=== PATIENT | female | born 1955 | race Caucasian/White ===

== ENCOUNTER → 2017-06-16 | Outpatient (CLI) | payer MEDICARE, OTHER ==
[~2017-06-16] MED LIST: Acidophilus La100 GM PO; B 12; BENADRYL IV; Benadryl 5050 MG/ML IV; CEPH500 PO; CYAN1000I IM; DIAZ5 PO; DIPH50 PO; DOCU100 PO; DOXY100 PO; Diflucan100 MG PO; EPIN.3I IM; ESTR.05PBW TOP; FENT50TP TOP; FLUC100 PO; FLUC150A PO; FLUC200 PO; HIZENTRA10 GM/50 M SC; HYDCOR10 PO; Imitrex100 MG PO; K-Tab10 MEQ PO; LEVAQUIN-D750 MG/150 IV; LEVO2 PO; LINE600 PO; MECL12.5 PO; METR500 PO; MUPI1NAS; MUPI1NAS TOP; MUPI2TO TOP; Metronidaz500 MG/100 IV; ONDA4ODT MM; OPIUM PO; OPIUM TINCTURE PO; PHENERGAN25 MG PR; PROM25 IV; PROM25 PO; SUMA25 PO; TPN; VANC125; VANCOCIN IV; VANCOMYCIN HCL IV; VANCOMYCIN HCL750 MG IV; VANCOMYCIN IV; VITAMIN D400 UNIT/1 PO; Vancocin 11000 MG/20 IV; Vancocin HCL1000 M1 IV; XARELTO15 MG PO; [UNRECOGNIZED DRUG - OTHER] PO
== END | disposition home or self-care (01) ==
LOC: LAB 08:29
DX: A68.9 Relapsing fever, unspecified (principal); R30.0 Dysuria
CPT/HCPCS: 87086

== ENCOUNTER → 2017-06-17 | Outpatient (CLI) | payer MEDICARE, OTHER ==
[2017-06-17 18:27] LABS: BASOPHILS ABSOLUTE AUTO 0.06 K/mm3 (0.00-0.23); BASOPHILS PERCENT AUTO 1 % (0-2); EOSINOPHILS ABSOLUTE AUTO 0.21 K/mm3 (0.00-0.68); EOSINOPHILS PERCENT AUTO 2 % (0-6); Hematocrit 41.7 % (33.0-51.0); Hemoglobin 13.9 g/dL (11.5-16.0); IMMATURE GRAN ABSOLUTE AUTO 0.03 K/mm3 (0.00-0.10); IMMATURE GRAN PERCENT AUTO 0 % (0-1); LYMPHOCYTES ABSOLUTE AUTO 3.74 K/mm3 (0.84-5.20); LYMPHOCYTES PERCENT AUTO 31 % (21-46); MONOCYTES ABSOLUTE AUTO 0.68 K/mm3 (0.16-1.47); MONOCYTES PERCENT AUTO 6 % (4-13); Mean Corpuscular HGB 29.4 pg (26.0-34.0); Mean Corpuscular HGB Conc 33.3 g/dL (31.5-36.5); Mean Corpuscular Volume 88 fL (80-100); Mean Platelet Volume 9.4 fL (9.1-12.4); NEUTROPHILS ABSOLUTE AUTO 7.39 K/mm3 (1.96-9.15); NEUTROPHILS PERCENT AUTO 61 % (41-73); Platelet Count 373 K/mm3 (150-400); RDW Coefficient Variation 14.2 % (11.7-14.2); RDW Standard Deviation 45.9 fL (35.1-46.3); Red Blood Cell Count 4.73 M/mm3 (3.80-5.20); White Blood Cell Count 12.11 K/mm3 (4.00-11.30)
[2017-06-17 20:00] LABS: Alanine Aminotransfer (ALT/SGP 16 U/L (12-78); Albumin, Blood 3.4 g/dL (3.4-5.0); Albumin/Globulin Ratio 0.9 (0.8-1.8); Alk Phos 131 U/L (50-136); Anion Gap 13 mmol/L (6-16); Aspartate Aminotrans (AST/SGOT 21 U/L (12-37); Bilirubin, Total 0.4 mg/dL (0.1-1.0); Blood Urea Nitrogen 7 mg/dL (8-24); Bun/Creatinine Ratio 9.1 (12.0-20.0); CO2, Blood 23 mmol/L (21-32); Calcium, Blood 9.1 mg/dL (8.5-10.1); Chloride, Blood 106 mmol/L (98-108); Creatinine, Blood 0.77 mg/dL (0.40-1.00); Globulin, Blood 3.7 g/dL (2.2-4.0); Glomerular Filtration Rate >60 (60-); Glucose, Blood 92 mg/dL (70-99); Potassium, Blood 4.1 mmol/L (3.5-5.5); Sodium, Blood 142 mmol/L (136-145); Total Protein, Blood 7.1 g/dL (6.4-8.2)
== END ==
LOC: LAB 15:24
PROVIDERS: Family Medicine
DX: A68.9 Relapsing fever, unspecified (principal); R51 Headache
CPT/HCPCS: 80053; 85025

== ENCOUNTER 2017-09-03 18:14 | Inpatient (IN) | payer MEDICARE, OTHER ==
[~2017-09-03] VITALS: Ht 152.4 cm; Wt 59.0 kg
[~2017-09-03 18:14] MED LIST changes: -CYAN1000I IM; -DOCU100 PO; -Diflucan100 MG PO; -FENT50TP TOP; -MUPI1NAS; -ONDA4ODT MM; -OPIUM PO; -PHENERGAN25 MG PR; -VITAMIN D400 UNIT/1 PO
[2017-09-03 19:29] LABS: BASOPHILS ABSOLUTE AUTO 0.02 K/mm3 (0.00-0.23); BASOPHILS PERCENT AUTO 0 % (0-2); EOSINOPHILS ABSOLUTE AUTO 0.01 K/mm3 (0.00-0.68); EOSINOPHILS PERCENT AUTO 0 % (0-6); Hematocrit 41.2 % (33.0-51.0); Hemoglobin 14.1 g/dL (11.5-16.0); IMMATURE GRAN ABSOLUTE AUTO 0.03 K/mm3 (0.00-0.10); IMMATURE GRAN PERCENT AUTO 0 % (0-1); LYMPHOCYTES ABSOLUTE AUTO 1.66 K/mm3 (0.84-5.20); LYMPHOCYTES PERCENT AUTO 16 % (21-46); MONOCYTES ABSOLUTE AUTO 0.73 K/mm3 (0.16-1.47); MONOCYTES PERCENT AUTO 7 % (4-13); Mean Corpuscular HGB 31.1 pg (26.0-34.0); Mean Corpuscular HGB Conc 34.2 g/dL (31.5-36.5); Mean Corpuscular Volume 91 fL (80-100); Mean Platelet Volume 9.2 fL (9.1-12.4); NEUTROPHILS ABSOLUTE AUTO 8.09 K/mm3 (1.96-9.15); NEUTROPHILS PERCENT AUTO 77 % (41-73); Platelet Count 309 K/mm3 (150-400); RDW Coefficient Variation 13.2 % (11.7-14.2); RDW Standard Deviation 44.1 fL (35.1-46.3); Red Blood Cell Count 4.54 M/mm3 (3.80-5.20); White Blood Cell Count 10.54 K/mm3 (4.00-11.30)
[2017-09-03 21:24] LABS: Alanine Aminotransfer (ALT/SGP 17 U/L (12-78); Albumin, Blood 3.6 g/dL (3.4-5.0); Albumin/Globulin Ratio 0.8 (0.8-1.8); Alk Phos 120 U/L (50-136); Anion Gap 14 mmol/L (6-16); Aspartate Aminotrans (AST/SGOT 16 U/L (12-37); Bilirubin, Total 0.6 mg/dL (0.1-1.0); Blood Urea Nitrogen 11 mg/dL (8-24); Bun/Creatinine Ratio 13.6 (12.0-20.0); CO2, Blood 24 mmol/L (21-32); Calcium, Blood 9.1 mg/dL (8.5-10.1); Chloride, Blood 98 mmol/L (98-108); Creatinine, Blood 0.81 mg/dL (0.40-1.00); Globulin, Blood 4.4 g/dL (2.2-4.0); Glomerular Filtration Rate >60 (60-); Glucose, Blood 80 mg/dL (70-99); Potassium, Blood 3.2 mmol/L (3.5-5.5); Sodium, Blood 136 mmol/L (136-145)
[2017-09-03 23:07] LABS: Source, Urine Clean Catch
[2017-09-03 23:10] LABS: Bilirubin, Urine Neg (Neg); Blood, Urine 1+ (Neg); Glucose Qualitative, Urine Neg (Neg); Ketones, Urine 3+ (Neg); Leukocyte Esterase, Urine 3+ (Neg); Nitrite, Urine Neg (Neg); Protein, Urine Neg (Neg); Urobilinogen, Urine NORM (Normal)
[2017-09-03 23:14] LABS: Appearance, Urine Hazy (Clear); Color, Urine Yellow (P-Yellow)
[2017-09-03 23:20] LABS: Amorphous Mod (0-Heavy); Bacteria Few /hpf; Red Blood Cells, Urine 0-2 /hpf (0-2); Squamous Epithelial Cells Not Seen /hpf (Few)
[2017-09-04 04:55] LABS: Hematocrit 38.4 % (33.0-51.0); Hemoglobin 12.8 g/dL (11.5-16.0); Mean Corpuscular HGB 30.3 pg (26.0-34.0); Mean Corpuscular HGB Conc 33.3 g/dL (31.5-36.5); Mean Corpuscular Volume 91 fL (80-100); Mean Platelet Volume 9.8 fL (9.1-12.4); Platelet Count 297 K/mm3 (150-400); RDW Coefficient Variation 13.5 % (11.7-14.2); RDW Standard Deviation 44.6 fL (35.1-46.3); Red Blood Cell Count 4.22 M/mm3 (3.80-5.20); White Blood Cell Count 8.35 K/mm3 (4.00-11.30)
[2017-09-04 05:17] LABS: Alanine Aminotransfer (ALT/SGP 15 U/L (12-78); Albumin, Blood 3.1 g/dL (3.4-5.0); Albumin/Globulin Ratio 0.8 (0.8-1.8); Alk Phos 101 U/L (50-136); Anion Gap 9 mmol/L (6-16); Aspartate Aminotrans (AST/SGOT 17 U/L (12-37); Bilirubin, Total 0.6 mg/dL (0.1-1.0); Blood Urea Nitrogen 10 mg/dL (8-24); Bun/Creatinine Ratio 14.1 (12.0-20.0); CO2, Blood 26 mmol/L (21-32); Calcium, Blood 8.3 mg/dL (8.5-10.1); Chloride, Blood 104 mmol/L (98-108); Creatinine, Blood 0.71 mg/dL (0.40-1.00); Globulin, Blood 3.9 g/dL (2.2-4.0); Glomerular Filtration Rate >60 (60-); Glucose, Blood 61 mg/dL (70-99); Sodium, Blood 139 mmol/L (136-145)
[2017-09-05 05:19] LABS: BASOPHILS ABSOLUTE AUTO 0.02 K/mm3 (0.00-0.23); BASOPHILS PERCENT AUTO 0 % (0-2); EOSINOPHILS ABSOLUTE AUTO 0.05 K/mm3 (0.00-0.68); EOSINOPHILS PERCENT AUTO 1 % (0-6); Hematocrit 35.3 % (33.0-51.0); Hemoglobin 11.9 g/dL (11.5-16.0); IMMATURE GRAN ABSOLUTE AUTO 0.02 K/mm3 (0.00-0.10); IMMATURE GRAN PERCENT AUTO 0 % (0-1); LYMPHOCYTES PERCENT AUTO 15 % (21-46); MONOCYTES ABSOLUTE AUTO 0.67 K/mm3 (0.16-1.47); MONOCYTES PERCENT AUTO 9 % (4-13); Mean Corpuscular HGB Conc 33.7 g/dL (31.5-36.5); Mean Corpuscular Volume 92 fL (80-100); Mean Platelet Volume 9.4 fL (9.1-12.4); NEUTROPHILS ABSOLUTE AUTO 5.48 K/mm3 (1.96-9.15); NEUTROPHILS PERCENT AUTO 75 % (41-73); Platelet Count 253 K/mm3 (150-400); RDW Coefficient Variation 13.2 % (11.7-14.2); RDW Standard Deviation 45.2 fL (35.1-46.3); Red Blood Cell Count 3.84 M/mm3 (3.80-5.20); White Blood Cell Count 7.34 K/mm3 (4.00-11.30)
[2017-09-05] MEDS ORDERED: VITAMIN D400 UNIT/1 PO (05:36)
[2017-09-05] MEDS ORDERED: CYAN1000I IM (05:38)
[2017-09-05 05:43] LABS: Anion Gap 11 mmol/L (6-16); Blood Urea Nitrogen 7 mg/dL (8-24); Bun/Creatinine Ratio 9.6 (12.0-20.0); CO2, Blood 22 mmol/L (21-32); Calcium, Blood 7.9 mg/dL (8.5-10.1); Chloride, Blood 107 mmol/L (98-108); Creatinine, Blood 0.73 mg/dL (0.40-1.00); Glomerular Filtration Rate >60 (60-); Glucose, Blood 75 mg/dL (70-99); Potassium, Blood 3.2 mmol/L (3.5-5.5); Sodium, Blood 140 mmol/L (136-145)
[2017-09-07 05:40] LABS: Anion Gap 8 mmol/L (6-16); Blood Urea Nitrogen 9 mg/dL (8-24); Bun/Creatinine Ratio 11.8 (12.0-20.0); CO2, Blood 25 mmol/L (21-32); Calcium, Blood 8.3 mg/dL (8.5-10.1); Chloride, Blood 109 mmol/L (98-108); Creatinine, Blood 0.76 mg/dL (0.40-1.00); Glomerular Filtration Rate >60 (60-); Glucose, Blood 90 mg/dL (70-99); Potassium, Blood 3.1 mmol/L (3.5-5.5); Sodium, Blood 142 mmol/L (136-145)
[2017-09-07] MEDS ORDERED: DOCU100 PO (11:13)
[2017-09-07] MEDS ORDERED: FENT50TP TOP (11:15)
[2017-09-07] MEDS ORDERED: HIZENTRA10 GM/50 M SC (11:19)
[2017-09-07] MEDS ORDERED: ONDA4ODT MM (11:20)
== END 2017-09-07 12:47 | disposition home or self-care (01) | DRG 389 ==
LOC: ER 18:14 → MEDS 21:55 → ENPENDDIS 09-07 10:00 → MEDS 09-07 12:47
PROVIDERS: Emergency Medicine; Internal Medicine
DX: K56.600 Partial intestinal obstruction, unspecified as to cause (principal); K91.2 Postsurgical malabsorption, not elsewhere classified; E46 Unspecified protein-calorie malnutrition; D84.9 Immunodeficiency, unspecified; N39.0 Urinary tract infection, site not specified; B96.89 Other specified bacterial agents as the cause of diseases classified elsewhere; R19.7 Diarrhea, unspecified; E86.0 Dehydration; E87.6 Hypokalemia; Z68.25 Body mass index [BMI] 25.0-25.9, adult; M81.0 Age-related osteoporosis without current pathological fracture; E55.9 Vitamin D deficiency, unspecified; G89.4 Chronic pain syndrome; F41.9 Anxiety disorder, unspecified; F17.210 Nicotine dependence, cigarettes, uncomplicated; Z90.49 Acquired absence of other specified parts of digestive tract; Z88.8 Allergy status to other drugs, medicaments and biological substances; Z79.899 Other long term (current) drug therapy
CPT/HCPCS: 36415; 74022; 74176; 80048; 80053; 81001; 83690; 85025; 85027; 87086; 87493; 96361; 96374; 96375; 96376; 99285; J1650; J2550; J3010; J3370; J3480; J7030

== ENCOUNTER 2017-12-24 17:25 | Inpatient (IN) | payer MEDICARE, OTHER ==
[~2017-12-24] VITALS: Ht 160 cm; Wt 61.0 kg
[~2017-12-24 17:25] MED LIST changes: +CYAN1000I IM; +DOCU100 PO; +FENT50TP TOP; +ONDA4ODT MM; +PHENERGAN25 MG PR; +VITAMIN D400 UNIT/1 PO
[2017-12-24] MEDS ORDERED: LINE600 PO (20:02)
[2017-12-24] MEDS ORDERED: OPIUM PO (20:04)
[2017-12-24 21:14] LABS: BASOPHILS ABSOLUTE AUTO 0.04 K/mm3 (0.00-0.23); BASOPHILS PERCENT AUTO 0 % (0-2); EOSINOPHILS ABSOLUTE AUTO 0.06 K/mm3 (0.00-0.68); EOSINOPHILS PERCENT AUTO 1 % (0-6); Hematocrit 41.7 % (33.0-51.0); Hemoglobin 14.2 g/dL (11.5-16.0); IMMATURE GRAN ABSOLUTE AUTO 0.04 K/mm3 (0.00-0.10); IMMATURE GRAN PERCENT AUTO 0 % (0-1); LYMPHOCYTES ABSOLUTE AUTO 2.52 K/mm3 (0.84-5.20); LYMPHOCYTES PERCENT AUTO 22 % (21-46); MONOCYTES ABSOLUTE AUTO 0.55 K/mm3 (0.16-1.47); MONOCYTES PERCENT AUTO 5 % (4-13); Mean Corpuscular HGB 30.7 pg (26.0-34.0); Mean Corpuscular HGB Conc 34.1 g/dL (31.5-36.5); Mean Corpuscular Volume 90 fL (80-100); Mean Platelet Volume 9.8 fL (9.1-12.4); NEUTROPHILS ABSOLUTE AUTO 8.09 K/mm3 (1.96-9.15); NEUTROPHILS PERCENT AUTO 72 % (41-73); Platelet Count 262 K/mm3 (150-400); RDW Coefficient Variation 13.2 % (11.7-14.2); RDW Standard Deviation 43.4 fL (35.1-46.3); Red Blood Cell Count 4.63 M/mm3 (3.80-5.20)
[2017-12-24 21:35] LABS: Alanine Aminotransfer (ALT/SGP 21 U/L (12-78); Albumin, Blood 3.4 g/dL (3.4-5.0); Albumin/Globulin Ratio 0.8 (0.8-1.8); Alk Phos 93 U/L (50-136); Anion Gap 11 mmol/L (6-16); Aspartate Aminotrans (AST/SGOT 20 U/L (12-37); Bilirubin, Total 0.6 mg/dL (0.1-1.0); Blood Urea Nitrogen 6 mg/dL (8-24); Bun/Creatinine Ratio 8.7 (12.0-20.0); CO2, Blood 26 mmol/L (21-32); Calcium, Blood 8.7 mg/dL (8.5-10.1); Chloride, Blood 106 mmol/L (98-108); Creatinine, Blood 0.69 mg/dL (0.40-1.00); Globulin, Blood 4.5 g/dL (2.2-4.0); Glomerular Filtration Rate >60 (60-); Glucose, Blood 79 mg/dL (70-99); Potassium, Blood 3.3 mmol/L (3.5-5.5); Sodium, Blood 143 mmol/L (136-145); Total Protein, Blood 7.9 g/dL (6.4-8.2)
[2017-12-26 05:34] LABS: BASOPHILS ABSOLUTE AUTO 0.06 K/mm3 (0.00-0.23); BASOPHILS PERCENT AUTO 1 % (0-2); EOSINOPHILS ABSOLUTE AUTO 0.38 K/mm3 (0.00-0.68); EOSINOPHILS PERCENT AUTO 4 % (0-6); Hematocrit 37.9 % (33.0-51.0); Hemoglobin 12.4 g/dL (11.5-16.0); IMMATURE GRAN ABSOLUTE AUTO 0.02 K/mm3 (0.00-0.10); IMMATURE GRAN PERCENT AUTO 0 % (0-1); LYMPHOCYTES ABSOLUTE AUTO 2.65 K/mm3 (0.84-5.20); LYMPHOCYTES PERCENT AUTO 29 % (21-46); MONOCYTES PERCENT AUTO 7 % (4-13); Mean Corpuscular HGB 30.3 pg (26.0-34.0); Mean Corpuscular HGB Conc 32.7 g/dL (31.5-36.5); Mean Platelet Volume 9.8 fL (9.1-12.4); NEUTROPHILS ABSOLUTE AUTO 5.43 K/mm3 (1.96-9.15); NEUTROPHILS PERCENT AUTO 59 % (41-73); Platelet Count 208 K/mm3 (150-400); RDW Coefficient Variation 12.8 % (11.7-14.2); RDW Standard Deviation 43.4 fL (35.1-46.3); Red Blood Cell Count 4.09 M/mm3 (3.80-5.20); White Blood Cell Count 9.14 K/mm3 (4.00-11.30)
[2017-12-26 05:35] LABS: Mean Corpuscular Volume 93 fL (80-100)
[2017-12-26 06:03] LABS: Alanine Aminotransfer (ALT/SGP 20 U/L (12-78); Albumin/Globulin Ratio 0.8 (0.8-1.8); Alk Phos 78 U/L (50-136); Anion Gap 12 mmol/L (6-16); Aspartate Aminotrans (AST/SGOT 24 U/L (12-37); Bilirubin, Total 0.6 mg/dL (0.1-1.0); Blood Urea Nitrogen 6 mg/dL (8-24); CO2, Blood 18 mmol/L (21-32); Calcium, Blood 7.3 mg/dL (8.5-10.1); Chloride, Blood 112 mmol/L (98-108); Globulin, Blood 3.6 g/dL (2.2-4.0); Glomerular Filtration Rate >60 (60-); Potassium, Blood 3.6 mmol/L (3.5-5.5); Sodium, Blood 142 mmol/L (136-145); Total Protein, Blood 6.6 g/dL (6.4-8.2)
[2017-12-26 06:05] LABS: Glucose, Blood 43 mg/dL (70-99)
== END 2017-12-26 13:53 | disposition home or self-care (01) | DRG 389 ==
LOC: ER 17:25 → PCU 17:26 → MEDS 12-25 01:13 → EDPENDDIS 12-26 07:11 → ENPENDDIS 12-26 07:11 → MEDS 12-26 13:53
PROVIDERS: Emergency Medicine; Family Medicine
DX: K56.609 Unspecified intestinal obstruction, unspecified as to partial versus complete obstruction (principal); D80.3 Selective deficiency of immunoglobulin G [IgG] subclasses; D80.2 Selective deficiency of immunoglobulin A [IgA]; K91.2 Postsurgical malabsorption, not elsewhere classified; E87.6 Hypokalemia; G43.909 Migraine, unspecified, not intractable, without status migrainosus; M81.0 Age-related osteoporosis without current pathological fracture; G89.4 Chronic pain syndrome; F17.200 Nicotine dependence, unspecified, uncomplicated; Z86.74 Personal history of sudden cardiac arrest; Z88.6 Allergy status to analgesic agent; Z88.1 Allergy status to other antibiotic agents; Z88.5 Allergy status to narcotic agent; Z88.0 Allergy status to penicillin; Z88.2 Allergy status to sulfonamides; Z88.8 Allergy status to other drugs, medicaments and biological substances; Z91.048 Other nonmedicinal substance allergy status; Z79.899 Other long term (current) drug therapy
CPT/HCPCS: 36415; 74018; 74177; 80053; 82947; 83690; 85025; 93005; 93010; 96372; 96375; 96376; G0378; J1650; J2405; J2550; J3010; J3480; J7030; Q9967

== ENCOUNTER → 2018-05-19 | Outpatient (CLI) | payer MEDICARE, OTHER ==
[~2018-05-19] MED LIST changes: +Diflucan100 MG PO; +MUPI1NAS; +OPIUM PO
[2018-05-26 13:40] LABS: Bacteria Not Seen /hpf; Red Blood Cells, Urine 0-2 /hpf (0-2); Squamous Epithelial Cells Not Seen /hpf (Few); White Blood Cells, Urine 0-2 /hpf (0-5)
== END | disposition home or self-care (01) ==
LOC: LAB 19:14 → LAB SHORT 19:14
PROVIDERS: Family Medicine
DX: R30.0 Dysuria (principal)
CPT/HCPCS: 81015; 87086

== ENCOUNTER → 2018-10-24 | Outpatient (CLI) | payer MEDICARE, OTHER | LOC: LAB EV 16:25 → LAB SHORT 16:25 | DX: R10.9 Unspecified abdominal pain (principal) | CPT/HCPCS: 87086 ==

== ENCOUNTER 2019-02-02 14:07 | Emergency (ER) | payer MEDICARE, OTHER ==
[~2019-02-02] VITALS: Ht 152.4 cm; Wt 49.9 kg
[2019-02-02 18:13] LABS: BASOPHILS ABSOLUTE AUTO 0.04 K/mm3 (0.00-0.23); BASOPHILS PERCENT AUTO 0 % (0-2); EOSINOPHILS PERCENT AUTO 1 % (0-6); Hematocrit 41.3 % (33.0-51.0); Hemoglobin 13.7 g/dL (11.5-16.0); IMMATURE GRAN ABSOLUTE AUTO 0.02 K/mm3 (0.00-0.10); IMMATURE GRAN PERCENT AUTO 0 % (0-1); LYMPHOCYTES ABSOLUTE AUTO 2.45 K/mm3 (0.84-5.20); LYMPHOCYTES PERCENT AUTO 25 % (21-46); MONOCYTES ABSOLUTE AUTO 0.56 K/mm3 (0.16-1.47); MONOCYTES PERCENT AUTO 6 % (4-13); Mean Corpuscular HGB 30.6 pg (26.0-34.0); Mean Corpuscular HGB Conc 33.2 g/dL (31.5-36.5); Mean Corpuscular Volume 92 fL (80-100); Mean Platelet Volume 9.7 fL (9.1-12.4); NEUTROPHILS ABSOLUTE AUTO 6.76 K/mm3 (1.96-9.15); NEUTROPHILS PERCENT AUTO 68 % (41-73); Platelet Count 275 K/mm3 (150-400); RDW Coefficient Variation 13.2 % (11.7-14.2); RDW Standard Deviation 45.1 fL (35.1-46.3); Red Blood Cell Count 4.47 M/mm3 (3.80-5.20); White Blood Cell Count 9.93 K/mm3 (4.00-11.30)
[2019-02-02 18:36] LABS: Alanine Aminotransfer (ALT/SGP 18 U/L (12-78); Albumin, Blood 3.1 g/dL (3.4-5.0); Albumin/Globulin Ratio 0.8 (0.8-1.8); Alk Phos 98 U/L (50-136); Anion Gap 5 mmol/L (6-16); Aspartate Aminotrans (AST/SGOT 24 U/L (12-37); Bilirubin, Total 0.4 mg/dL (0.1-1.0); Blood Urea Nitrogen 8 mg/dL (8-24); Bun/Creatinine Ratio 12.2 (12.0-20.0); CO2, Blood 24 mmol/L (21-32); Calcium, Blood 8.8 mg/dL (8.5-10.1); Chloride, Blood 109 mmol/L (98-108); Creatinine, Blood 0.66 mg/dL (0.40-1.00); Globulin, Blood 3.8 g/dL (2.2-4.0); Glomerular Filtration Rate >60 (60-); Glucose, Blood 88 mg/dL (70-99); Potassium, Blood 3.7 mmol/L (3.5-5.5); Sodium, Blood 138 mmol/L (136-145); Total Protein, Blood 6.9 g/dL (6.4-8.2)
== END 2019-02-02 19:47 | disposition home or self-care (01) ==
LOC: ER 14:07
PROVIDERS: Emergency Medicine
DX: H92.01 Otalgia, right ear (principal); Z88.8 Allergy status to other drugs, medicaments and biological substances; Z88.6 Allergy status to analgesic agent; Z88.2 Allergy status to sulfonamides; Z88.5 Allergy status to narcotic agent; Z88.1 Allergy status to other antibiotic agents; Z79.899 Other long term (current) drug therapy; Z79.891 Long term (current) use of opiate analgesic; F17.210 Nicotine dependence, cigarettes, uncomplicated
CPT/HCPCS: 36415; 70450; 80053; 85025; 99284-25

== ENCOUNTER → 2019-04-13 | Outpatient (CLI) | payer MEDICARE, OTHER ==
[2019-04-13 18:33] LABS: BASOPHILS ABSOLUTE AUTO 0.08 K/mm3 (0.00-0.23); BASOPHILS PERCENT AUTO 1 % (0-2); EOSINOPHILS ABSOLUTE AUTO 0.14 K/mm3 (0.00-0.68); EOSINOPHILS PERCENT AUTO 1 % (0-6); Hemoglobin 13.9 g/dL (11.5-16.0); IMMATURE GRAN ABSOLUTE AUTO 0.07 K/mm3 (0.00-0.10); IMMATURE GRAN PERCENT AUTO 0 % (0-1); LYMPHOCYTES ABSOLUTE AUTO 3.76 K/mm3 (0.84-5.20); LYMPHOCYTES PERCENT AUTO 22 % (21-46); MONOCYTES PERCENT AUTO 8 % (4-13); Mean Corpuscular HGB 30.1 pg (26.0-34.0); Mean Corpuscular HGB Conc 33.1 g/dL (31.5-36.5); Mean Corpuscular Volume 91 fL (80-100); Mean Platelet Volume 9.7 fL (9.1-12.4); NEUTROPHILS ABSOLUTE AUTO 11.72 K/mm3 (1.96-9.15); NEUTROPHILS PERCENT AUTO 69 % (41-73); Platelet Count 407 K/mm3 (150-400); Red Blood Cell Count 4.62 M/mm3 (3.80-5.20); White Blood Cell Count 17.07 K/mm3 (4.00-11.30)
[2019-04-13 18:38] LABS: C-REACTIVE PROTEIN, EXT RANGE 0.447 mg/dL (0.000-0.300)
[2019-04-13 18:52] LABS: Alanine Aminotransfer (ALT/SGP 25 U/L (12-78); Albumin, Blood 3.9 g/dL (3.4-5.0); Albumin/Globulin Ratio 0.9 (0.8-1.8); Alk Phos 107 U/L (50-136); Anion Gap 11 mmol/L (6-16); Aspartate Aminotrans (AST/SGOT 32 U/L (12-37); Bilirubin, Total 0.6 mg/dL (0.1-1.0); Blood Urea Nitrogen 8 mg/dL (8-24); Bun/Creatinine Ratio 9.5 (12.0-20.0); CO2, Blood 19 mmol/L (21-32); Calcium, Blood 9.2 mg/dL (8.5-10.1); Chloride, Blood 106 mmol/L (98-108); Creatinine, Blood 0.84 mg/dL (0.40-1.00); Globulin, Blood 4.5 g/dL (2.2-4.0); Glomerular Filtration Rate >60 (60-); Glucose, Blood 130 mg/dL (70-99); Potassium, Blood 3.9 mmol/L (3.5-5.5); Sodium, Blood 136 mmol/L (136-145); Total Protein, Blood 8.4 g/dL (6.4-8.2)
[2019-04-14 20:42] LABS: Adenovirus F 40/41 Not Detected (NOT DETECT); Astrovirus Not Detected (NOT DETECT); Campylobacter Sp Not Detected (NOT DETECT); Cryptosporidium Not Detected (NOT DETECT); Cyclospora Cayetanensis Not Detected (NOT DETECT); E. Coli O157 Not Detected (NOT DETECT); Entamoeba Histolytica Not Detected (NOT DETECT); Enteroaggregative E. coli-EAEC Not Detected (NOT DETECT); Enteropathogenic E. coli-EPEC Not Detected (NOT DETECT); Enterotoxigenic E. coli-ETEC Not Detected (NOT DETECT); Giardia Lamblia Not Detected (NOT DETECT); Norovirus GI/GII Not Detected (NOT DETECT); Plesiomonas Shigelloides Not Detected (NOT DETECT); Rotavirus A Not Detected (NOT DETECT); Salmonella Sp Not Detected (NOT DETECT); Sapovirus Not Detected (NOT DETECT); Shiga Toxin-prod E. coli-STEC Not Detected (NOT DETECT); Shigella/Enteroin E. coli-EIEC Not Detected (NOT DETECT); Vibrio Cholerae Not Detected (NOT DETECT); Vibrio Sp Not Detected (NOT DETECT); Yersinia Enterocolitica Not Detected (NOT DETECT)
== END | disposition home or self-care (01) ==
LOC: LAB 16:33 → LAB SHORT 16:33
PROVIDERS: Nurse Practitioner Family
DX: R19.7 Diarrhea, unspecified (principal); R50.9 Fever, unspecified
CPT/HCPCS: 0097U; 80053; 84443; 85025; 85651; 86140; 87070; 87205

== ENCOUNTER 2019-04-16 12:54 | Emergency (ER) | payer MEDICARE, OTHER ==
[~2019-04-16] VITALS: Ht 152.4 cm; Wt 49.9 kg
[2019-04-16 15:01] LABS: BASOPHILS ABSOLUTE AUTO 0.03 K/mm3 (0.00-0.23); BASOPHILS PERCENT AUTO 0 % (0-2); EOSINOPHILS ABSOLUTE AUTO 0.02 K/mm3 (0.00-0.68); EOSINOPHILS PERCENT AUTO 0 % (0-6); Hematocrit 40.2 % (33.0-51.0); Hemoglobin 13.2 g/dL (11.5-16.0); IMMATURE GRAN ABSOLUTE AUTO 0.05 K/mm3 (0.00-0.10); IMMATURE GRAN PERCENT AUTO 0 % (0-1); LYMPHOCYTES ABSOLUTE AUTO 1.91 K/mm3 (0.84-5.20); LYMPHOCYTES PERCENT AUTO 14 % (21-46); MONOCYTES PERCENT AUTO 6 % (4-13); Mean Corpuscular HGB 30.3 pg (26.0-34.0); Mean Corpuscular HGB Conc 32.8 g/dL (31.5-36.5); Mean Corpuscular Volume 92 fL (80-100); Mean Platelet Volume 9.2 fL (9.1-12.4); NEUTROPHILS ABSOLUTE AUTO 11.13 K/mm3 (1.96-9.15); NEUTROPHILS PERCENT AUTO 80 % (41-73); Platelet Count 390 K/mm3 (150-400); RDW Coefficient Variation 13.9 % (11.7-14.2); RDW Standard Deviation 47.8 fL (35.1-46.3); Red Blood Cell Count 4.36 M/mm3 (3.80-5.20); White Blood Cell Count 13.94 K/mm3 (4.00-11.30)
[2019-04-16 15:23] LABS: Alanine Aminotransfer (ALT/SGP 24 U/L (12-78); Albumin, Blood 3.9 g/dL (3.4-5.0); Albumin/Globulin Ratio 0.9 (0.8-1.8); Alk Phos 85 U/L (50-136); Anion Gap 18 mmol/L (6-16); Aspartate Aminotrans (AST/SGOT 47 U/L (12-37); Bilirubin, Total 1.4 mg/dL (0.1-1.0); Blood Urea Nitrogen 14 mg/dL (8-24); CO2, Blood 19 mmol/L (21-32); Calcium, Blood 9.1 mg/dL (8.5-10.1); Chloride, Blood 102 mmol/L (98-108); Creatinine, Blood 0.78 mg/dL (0.40-1.00); Globulin, Blood 4.3 g/dL (2.2-4.0); Glomerular Filtration Rate >60 (60-); Glucose, Blood 59 mg/dL (70-99); Potassium, Blood 3.8 mmol/L (3.5-5.5); Sodium, Blood 139 mmol/L (136-145); Total Protein, Blood 8.2 g/dL (6.4-8.2)
[2019-04-16] MEDS ORDERED: PROM25 PO (15:48)
[2019-04-16] MEDS ORDERED: Diflucan100 MG PO (15:48)
== END 2019-04-16 16:11 | disposition home or self-care (01) ==
LOC: ER 12:54
PROVIDERS: Emergency Medicine
DX: R19.7 Diarrhea, unspecified (principal); R11.2 Nausea with vomiting, unspecified; F11.23 Opioid dependence with withdrawal; G89.4 Chronic pain syndrome; M81.0 Age-related osteoporosis without current pathological fracture; E55.9 Vitamin D deficiency, unspecified; F17.210 Nicotine dependence, cigarettes, uncomplicated
CPT/HCPCS: 36415; 80053; 85025; 96361; 96374; 96375; 99283-25; J1170; J2550; J7030

== ENCOUNTER → 2019-04-22 | Outpatient (CLI) | payer MEDICARE, OTHER | END | disposition home or self-care (01) | LOC: LAB SHORT 16:28 → LAB 16:28 → LAB FUT 04-14 08:35 | DX: J02.9 Acute pharyngitis, unspecified (principal); R50.9 Fever, unspecified | CPT/HCPCS: 87070; 87205 ==

== ENCOUNTER 2019-08-09 20:30 | Emergency (ER) | payer MEDICARE, OTHER ==
[~2019-08-09] VITALS: Ht 152.4 cm; Wt 47.6 kg
== END 2019-08-10 02:19 | disposition home or self-care (01) ==
LOC: ER 20:30
DX: B37.0 Candidal stomatitis (principal); R13.10 Dysphagia, unspecified; F17.210 Nicotine dependence, cigarettes, uncomplicated; Z88.1 Allergy status to other antibiotic agents; Z88.8 Allergy status to other drugs, medicaments and biological substances; Z88.6 Allergy status to analgesic agent; Z91.048 Other nonmedicinal substance allergy status; Z88.5 Allergy status to narcotic agent; Z79.899 Other long term (current) drug therapy
CPT/HCPCS: 99283

== ENCOUNTER 2019-08-23 17:57 | Inpatient (IN) | payer MEDICARE, OTHER ==
[~2019-08-23] VITALS: Ht 152.4 cm; Wt 44.2 kg
[~2019-08-23 17:57] MED LIST changes: -VITAMIN D400 UNIT/1 PO; +Vitamin D2000 UNIT PO
[2019-08-23 18:55] LABS: BASOPHILS ABSOLUTE AUTO 0.02 K/mm3 (0.00-0.23); BASOPHILS PERCENT AUTO 0 % (0-2); EOSINOPHILS ABSOLUTE AUTO 0.01 K/mm3 (0.00-0.68); EOSINOPHILS PERCENT AUTO 0 % (0-6); Hematocrit 40.8 % (33.0-51.0); Hemoglobin 13.8 g/dL (11.5-16.0); IMMATURE GRAN ABSOLUTE AUTO 0.05 K/mm3 (0.00-0.10); IMMATURE GRAN PERCENT AUTO 0 % (0-1); LYMPHOCYTES ABSOLUTE AUTO 0.93 K/mm3 (0.84-5.20); LYMPHOCYTES PERCENT AUTO 6 % (21-46); MONOCYTES ABSOLUTE AUTO 0.97 K/mm3 (0.16-1.47); MONOCYTES PERCENT AUTO 7 % (4-13); Mean Corpuscular HGB 29.2 pg (26.0-34.0); Mean Corpuscular HGB Conc 33.8 g/dL (31.5-36.5); Mean Corpuscular Volume 86 fL (80-100); Mean Platelet Volume 11.2 fL (9.1-12.4); NEUTROPHILS ABSOLUTE AUTO 12.59 K/mm3 (1.96-9.15); NEUTROPHILS PERCENT AUTO 86 % (41-73); Platelet Count 230 K/mm3 (150-400); RDW Coefficient Variation 13.8 % (11.7-14.2); RDW Standard Deviation 43.4 fL (35.1-46.3); Red Blood Cell Count 4.72 M/mm3 (3.80-5.20); White Blood Cell Count 14.57 K/mm3 (4.00-11.30)
[2019-08-23 19:32] LABS: Alanine Aminotransfer (ALT/SGP 20 U/L (12-78); Albumin, Blood 3.3 g/dL (3.4-5.0); Albumin/Globulin Ratio 0.8 (0.8-1.8); Alk Phos 77 U/L (50-136); Anion Gap 17 mmol/L (6-16); Aspartate Aminotrans (AST/SGOT 23 U/L (12-37); Bilirubin, Total 0.8 mg/dL (0.1-1.0); Blood Urea Nitrogen 8 mg/dL (8-24); Bun/Creatinine Ratio 14.1 (12.0-20.0); CO2, Blood 21 mmol/L (21-32); Calcium, Blood 9.1 mg/dL (8.5-10.1); Chloride, Blood 97 mmol/L (98-108); Creatinine, Blood 0.57 mg/dL (0.40-1.00); Globulin, Blood 4.2 g/dL (2.2-4.0); Glomerular Filtration Rate >60 (60-); Glucose, Blood 106 mg/dL (70-99); Potassium, Blood 2.6 mmol/L (3.5-5.5); Sodium, Blood 135 mmol/L (136-145); Total Protein, Blood 7.5 g/dL (6.4-8.2)
[2019-08-23] MEDS ORDERED: B-121000 MC3 PO (20:39)
[2019-08-23] MEDS ORDERED: DIPHENHYDR50 MG/1 M1 IM (20:42)
[2019-08-23 21:08] LABS: Source, Urine Clean Catch
[2019-08-23 21:10] LABS: Appearance, Urine Hazy (Clear); Blood, Urine 2+ (Neg); Color, Urine Amber (P-Yellow); Glucose Qualitative, Urine Neg (Neg); Ketones, Urine 4+ (Neg); Leukocyte Esterase, Urine 3+ (Neg); Nitrite, Urine Neg (Neg); Protein, Urine 2+ (Neg); Urobilinogen, Urine 1+ (Normal)
[2019-08-23 21:12] LABS: Bilirubin, Urine 1+ (Neg)
[2019-08-23 21:17] LABS: Amorphous Mod (0-Heavy); Bacteria Many /hpf; Red Blood Cells, Urine 0-2 /hpf (0-2); Squamous Epithelial Cells Rare /hpf (Few); White Blood Cells, Urine 25-50 /hpf (0-5)
[2019-08-23 21:18] LABS: Hyaline Casts 0-2 /lpf (0-2)
[2019-08-23] MEDS ORDERED: NYST237S PO (21:21)
--- NOTE | 2019-08-24 00:58 | NUR ---
patient oral home medication, opium tincture 10mg per ml, measured and verified with Junito STONE. Total xk=[id number]. Will take medication to pharmacy for verification and labeling.
[2019-08-24 04:26] LABS: BASOPHILS ABSOLUTE AUTO 0.03 K/mm3 (0.00-0.23); BASOPHILS PERCENT AUTO 0 % (0-2); EOSINOPHILS ABSOLUTE AUTO 0.02 K/mm3 (0.00-0.68); EOSINOPHILS PERCENT AUTO 0 % (0-6); Hematocrit 35.7 % (33.0-51.0); Hemoglobin 11.9 g/dL (11.5-16.0); IMMATURE GRAN ABSOLUTE AUTO 0.06 K/mm3 (0.00-0.10); IMMATURE GRAN PERCENT AUTO 1 % (0-1); LYMPHOCYTES ABSOLUTE AUTO 1.86 K/mm3 (0.84-5.20); LYMPHOCYTES PERCENT AUTO 17 % (21-46); MONOCYTES ABSOLUTE AUTO 1.21 K/mm3 (0.16-1.47); MONOCYTES PERCENT AUTO 11 % (4-13); Mean Corpuscular HGB 29.3 pg (26.0-34.0); Mean Corpuscular HGB Conc 33.3 g/dL (31.5-36.5); Mean Corpuscular Volume 88 fL (80-100); Mean Platelet Volume 11.8 fL (9.1-12.4); NEUTROPHILS ABSOLUTE AUTO 7.73 K/mm3 (1.96-9.15); NEUTROPHILS PERCENT AUTO 71 % (41-73); Platelet Count 195 K/mm3 (150-400); RDW Coefficient Variation 14.1 % (11.7-14.2); RDW Standard Deviation 45.7 fL (35.1-46.3); Red Blood Cell Count 4.06 M/mm3 (3.80-5.20); White Blood Cell Count 10.91 K/mm3 (4.00-11.30)
[2019-08-24 04:45] LABS: Anion Gap 15 mmol/L (6-16); Blood Urea Nitrogen 8 mg/dL (8-24); Bun/Creatinine Ratio 15.4 (12.0-20.0); CO2, Blood 20 mmol/L (21-32); Calcium, Blood 7.8 mg/dL (8.5-10.1); Chloride, Blood 106 mmol/L (98-108); Creatinine, Blood 0.52 mg/dL (0.40-1.00); Glomerular Filtration Rate >60 (60-); Glucose, Blood 95 mg/dL (70-99); Potassium, Blood 3.4 mmol/L (3.5-5.5); Sodium, Blood 141 mmol/L (136-145)
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
--- NOTE | 2019-08-24 12:09 | NUR ---
Spiritual care visit conducted. Patient is lying in bed and alert. Patient is talking to herself when I enter patient's room. Patient talks about many things and drifts from one topic to the next randomly and without a pause. I was able to gather information about her upcoming hip/leg surgery, about her family unit complications and about her pia (patient attends [facility]). Patient seems to not be very kind to to staff as they try to assist patient and is demanding of me as well. I listen empathically, reinforce helpful attitudes and provide prayer. I will continue to remain available to patient and family.
--- NOTE | 2019-08-24 13:54 | NUR ---
TRANSFER ARRIVAL TO UNIT FROM [facility]. PT ALERT AND ORIENTED. PT DOES HAVE FLIGHT OF IDEAS AND CAN BE DEMANDING AT TIMES. ORIENTED TO ROOM AND TREATMENT PLAN. PT REMAINING NPO. CARDIOLOGY CONSULT CALLED IN BY DR. VARGHESE. PT REPORTS 10/10 PAIN. PT DID RECEIVE DILAUDID BEFORE ARRIVAL TO UNIT. R HIP IS EXTERNALLY ROTATED. PEDAL PULSES FAINT. PT DENIES N/T AND ABLE TO WIGGLE TOES. CAP REFILL WNL. HEEL ELEVATED ON PILLOWS. KIRAN PATENT WITH YELLOW URINE. PT REFUSES TO BE REPOSITIONED AT THIS TIME. IVF INFUSING PER ORDERS. PERSONAL COFFEE MUG PLACED IN BEDSIDE DRAWER PER REQUEST BY PT. CALL LIGHT WITHIN REACH.
--- NOTE | 2019-08-24 14:05 | NUR ---
PT CHANGED STATUS TO SURGICAL STATUS WITH NO TELE. DR VARGHESE WAS IN TO SEE PT WOULD LIKE CARDIO CONSULT PRE SURGERY FOR EVAL D/T ABNORMAL EKG. TROP WAS DRAWN AND WAS WNL, DR VARGHESE MADE AWARE OF PROVIDER TO PROVIDER CONSULT POLICY FOR CARDIOLOGISTS. PT WAS THEN TRANSFERRED TO SURGICAL FLOOR ROOM 220 REPORT GIVEN TO AIDEE STONE. PLAN TO RE-EVAL PT TOMORROW FOR SURGERY AND TO KEEP PT NPO. PT HAS BEEN MEDICATED WITH PAIN MEDS FOR PAIN AND OPIUM TINCTURE FOR SHORT GUT SYNDROME. WILL MONITOR
--- NOTE | 2019-08-24 16:47 | NUR ---
SHIFT SUMMARY NO ACUTE CHANGES SINCE ARRIVAL TO UNIT. PT STILL DEMANDING AT TIMES AND HAS FLIGHT OF IDEAS. BUT SO FAR COOPERATIVE WITH CARE. CARDIOLOGY DR. AGUILAR CONSULTED ON PT AND CLEARED PT FOR SURGERY. DR. VARGHESE NOTIFIED AND PT ADDED ON TO OR SCHEDULE FOR TOMORROW. NPO AT MIDNIGHT. IVP DILAUDID FOR PAIN MANAGEMENT. KIRAN PATENT WITH DARK YELLOW URINE. IVF INFUSING PER ORDERS. CALL LIGHT WITHIN REACH.
--- NOTE | 2019-08-24 21:25 | NUR ---
pATIENT EXTREMELY ANXIOUS. DEMONSTRATING FLIGHT OF IDEAS, PARANOIA AND INABILITY TO FOLLOW ANY COMMANDS. OFFERED TO CHANGE ENVIRONMENT TO MAKE MORE RELAXING AND CONDUSIVE FOR SLEEP, AND PATIENTS RESPONSE WAS "YOU THINK I'M CRAZY? WELL I WON'T TAKE ANY ANTIPSYCHOTICS. JUST GIVE ME COFFEE. WILL TRY FINDING OTHER METHODS TO CALM PATIENT DOWN.
--- NOTE | 2019-08-25 04:31 | NUR ---
PALM AND BACK FORGER SUMMARY Patient awake and manic all night. Unable to focus on instructions, continues with flight of ideas. Right upper thigh extremely painful requiring IV medication every 2-3 hours. Patient has been NPO since 2400. Very determined that anesthesiologist is aware of her inability to tolerate any type of sulfate drug. Explained that she would meed him/her prior to the OR, but unsure whether patient could process that information at the time it was given.
[2019-08-25 04:58] LABS: BASOPHILS ABSOLUTE AUTO 0.04 K/mm3 (0.00-0.23); BASOPHILS PERCENT AUTO 1 % (0-2); EOSINOPHILS ABSOLUTE AUTO 0.25 K/mm3 (0.00-0.68); EOSINOPHILS PERCENT AUTO 3 % (0-6); Hematocrit 31.4 % (33.0-51.0); Hemoglobin 10.4 g/dL (11.5-16.0); IMMATURE GRAN ABSOLUTE AUTO 0.02 K/mm3 (0.00-0.10); IMMATURE GRAN PERCENT AUTO 0 % (0-1); LYMPHOCYTES ABSOLUTE AUTO 1.46 K/mm3 (0.84-5.20); LYMPHOCYTES PERCENT AUTO 18 % (21-46); MONOCYTES PERCENT AUTO 13 % (4-13); Mean Corpuscular HGB 29.7 pg (26.0-34.0); Mean Corpuscular HGB Conc 33.1 g/dL (31.5-36.5); Mean Corpuscular Volume 90 fL (80-100); Mean Platelet Volume 11.2 fL (9.1-12.4); NEUTROPHILS ABSOLUTE AUTO 5.39 K/mm3 (1.96-9.15); NEUTROPHILS PERCENT AUTO 65 % (41-73); Platelet Count 148 K/mm3 (150-400); RDW Coefficient Variation 14.3 % (11.7-14.2); RDW Standard Deviation 46.5 fL (35.1-46.3); White Blood Cell Count 8.26 K/mm3 (4.00-11.30)
[2019-08-25 05:35] LABS: Anion Gap 12 mmol/L (6-16); Blood Urea Nitrogen 5 mg/dL (8-24); Bun/Creatinine Ratio 11.6 (12.0-20.0); CO2, Blood 23 mmol/L (21-32); Calcium, Blood 7.9 mg/dL (8.5-10.1); Chloride, Blood 102 mmol/L (98-108); Creatinine, Blood 0.43 mg/dL (0.40-1.00); Glomerular Filtration Rate >60 (60-); Glucose, Blood 79 mg/dL (70-99); Magnesium, Blood 1.6 mg/dL (1.6-2.4); Sodium, Blood 137 mmol/L (136-145)
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
--- NOTE | 2019-08-25 12:44 | NUR ---
PT TO OR AT THIS TIME. PT SISTER SHANE MADE AWARE.
--- NOTE | 2019-08-25 12:51 | NUR ---
History, Chart, Medications and Allergies reviewed before start of procedure. Lungs clear T/O to Auscultation. Patient confirms NPO status and agrees with scheduled surgery. Pre-Op teaching done. Pt verbalizes understanding. Too painful for SDS/chlorhexidine wash, will send back with OR crew.
--- NOTE | 2019-08-25 19:47 | NUR ---
POST OP: REPORT RECEIVED FROM ALGEBRA TEACHER. PT TO UNIT AT ABOUT 1630. UPON ASSESSMENT PT IS A/O, VSS. SURGICAL SITE CDI, PT ABLE TO WIGGLE TOES, PULSE PALPABLE. PT RATES PAIN 10/10, MEDICATED PER EMAR. WILL CTM. CONTINIOUS BI OX IN PLACE. PT INSTUCTED ON I.S. USE.
--- NOTE | 2019-08-25 19:49 | NUR ---
SUMMARY: NO CHANGE SINCE POST OP. ABLE TO TOLERATE SOME PO INTAKE, DENIES N/V. SURGICAL SITE WNL. PT CONTINUES TO RATE PAIN 10/10 CONSTANTLY DESPITE RECEIVING MEDICATION. PT HAS CHRONIC PAIN. PT CURRENTLY SITTING UP IN BED TALKING ON PHONE TO FAMILY. THIS RN NOTIFIED PT SISTER WHEN PT ARRIVED POST OP. NO ACUTE SAFETY CONCERNS. REPORT GIVEN TO INA PUCKETT RN.
[2019-08-26 04:26] LABS: BASOPHILS ABSOLUTE AUTO 0.03 K/mm3 (0.00-0.23); BASOPHILS PERCENT AUTO 0 % (0-2); EOSINOPHILS ABSOLUTE AUTO 0.32 K/mm3 (0.00-0.68); EOSINOPHILS PERCENT AUTO 4 % (0-6); Hematocrit 29.1 % (33.0-51.0); Hemoglobin 9.6 g/dL (11.5-16.0); IMMATURE GRAN ABSOLUTE AUTO 0.03 K/mm3 (0.00-0.10); IMMATURE GRAN PERCENT AUTO 0 % (0-1); LYMPHOCYTES ABSOLUTE AUTO 1.03 K/mm3 (0.84-5.20); LYMPHOCYTES PERCENT AUTO 13 % (21-46); MONOCYTES ABSOLUTE AUTO 1.21 K/mm3 (0.16-1.47); MONOCYTES PERCENT AUTO 15 % (4-13); Mean Corpuscular HGB 29.7 pg (26.0-34.0); Mean Corpuscular Volume 90 fL (80-100); Mean Platelet Volume 10.9 fL (9.1-12.4); NEUTROPHILS ABSOLUTE AUTO 5.59 K/mm3 (1.96-9.15); NEUTROPHILS PERCENT AUTO 68 % (41-73); Platelet Count 148 K/mm3 (150-400); RDW Coefficient Variation 13.9 % (11.7-14.2); RDW Standard Deviation 45.6 fL (35.1-46.3); Red Blood Cell Count 3.23 M/mm3 (3.80-5.20); White Blood Cell Count 8.21 K/mm3 (4.00-11.30)
[2019-08-26 04:43] LABS: Anion Gap 9 mmol/L (6-16); Blood Urea Nitrogen 3 mg/dL (8-24); Bun/Creatinine Ratio 6.7 (12.0-20.0); CO2, Blood 26 mmol/L (21-32); Calcium, Blood 7.9 mg/dL (8.5-10.1); Chloride, Blood 101 mmol/L (98-108); Creatinine, Blood 0.45 mg/dL (0.40-1.00); Glomerular Filtration Rate >60 (60-); Glucose, Blood 101 mg/dL (70-99); Magnesium, Blood 1.5 mg/dL (1.6-2.4); Potassium, Blood 3.4 mmol/L (3.5-5.5); Sodium, Blood 136 mmol/L (136-145)
--- NOTE | 2019-08-26 05:05 | NUR ---
SHIFT SUMMARY LYING IN SEMI FOWLERS WITH EYES OPEN WHILE WATCHING TV. AAO X3, EVANGELISTA, FOLLOWS ALL COMMANDS. DENIES PAIN OR DISCOMFORT, ABLE TO REPOSITION SELF IN BED PRN. LEFT KNEE IN GUILLE WRAP THAT IS C/D/I. CRYOTHERAPY IN PLACE FOR COMFORT. DENIES FURTHER NEEDS OR WANTS AT THIS TIME. STATES THAT SHE WILL NOT GO TO REHAB UPON D/C, BUT MUST INTEAD NE SENT HOME UNDER HER SON'S CARE. SAFETY MEASURES IN PLACE. WILL CONTINUE TO MONITOR AND GIVE HAND OFF TO ONCOMING SHIFT USING SBAR.
--- NOTE | 2019-08-26 05:10 | NUR ---
SHIFT SUMMARY LYING IN SEMI FOWLERS WITH EYES OPEN WHILE WATCHING TV. AAO X3, EVANGELISTA, FOLLOWS ALL COMMANDS. DENIES PAIN OR DISCOMFORT, ABLE TO REPOSITION SELF IN BED PRN. RIGHT HIP WITH AQUACELL IN PLACE THAT IS C/D/I. REFUSES OFFER OF ICE PACK FOR SWOLLEN AND PAINFUL HIP. DENIES FURTHER NEEDS OR WANTS AT THIS TIME. SAFETY MEASURES IN PLACE. WILL CONTINUE TO MONITOR AND GIVE HAND OFF TO ONCOMING SHIFT USING SBAR.
[2019-08-26 12:56] LABS: Hematocrit 25.1 % (33.0-51.0); Hemoglobin 8.5 g/dL (11.5-16.0)
--- NOTE | 2019-08-26 18:39 | NUR ---
SHIFT SUMMARY PT IS ALERT AND ORIENT, FOLLOWS COMMANDS. PT C/O PAIN IN RIGHT HIP AND ABD RELATED TO HER SHORT GUT. PT HAS FREQUENTLY REQUESTED PRN PAIN MEDS, SEE EMAR FOR DOCUMENTATION. RIGHT HIP DRESSING IS DRY/INTACT, SWELLING NOTED TO RIGHT THIGH/HIP. PHYSICAL/OCCUPATIONAL THERAPY WAS ABLE TO WORK WITH PT TODAY. VITALS HAVE REMAINED STABLE.
[2019-08-27 04:39] LABS: BASOPHILS ABSOLUTE AUTO 0.01 K/mm3 (0.00-0.23); BASOPHILS PERCENT AUTO 0 % (0-2); EOSINOPHILS ABSOLUTE AUTO 0.26 K/mm3 (0.00-0.68); EOSINOPHILS PERCENT AUTO 4 % (0-6); Hematocrit 26.7 % (33.0-51.0); Hemoglobin 8.7 g/dL (11.5-16.0); IMMATURE GRAN ABSOLUTE AUTO 0.02 K/mm3 (0.00-0.10); IMMATURE GRAN PERCENT AUTO 0 % (0-1); LYMPHOCYTES ABSOLUTE AUTO 1.34 K/mm3 (0.84-5.20); LYMPHOCYTES PERCENT AUTO 18 % (21-46); MONOCYTES ABSOLUTE AUTO 1.21 K/mm3 (0.16-1.47); MONOCYTES PERCENT AUTO 17 % (4-13); Mean Corpuscular HGB 29.1 pg (26.0-34.0); Mean Corpuscular HGB Conc 32.6 g/dL (31.5-36.5); Mean Corpuscular Volume 89 fL (80-100); Mean Platelet Volume 10.8 fL (9.1-12.4); NEUTROPHILS ABSOLUTE AUTO 4.45 K/mm3 (1.96-9.15); NEUTROPHILS PERCENT AUTO 61 % (41-73); Platelet Count 173 K/mm3 (150-400); RDW Standard Deviation 45.7 fL (35.1-46.3); Red Blood Cell Count 2.99 M/mm3 (3.80-5.20); White Blood Cell Count 7.29 K/mm3 (4.00-11.30)
--- NOTE | 2019-08-27 04:47 | NUR ---
SHIFT SUMMARY POD 2 R HIP PINNING PT [id number]. VSS. PT C/O PAIN 10 BEFORE AND AFTER MEDICATION, PT ABLE TO MOVE AND REPOSITION SELF IN BED DURING SHIFT. DIFFICULT TO ASSESS PATIENTS PAIN R/T FLIGHT OF IDEAS AND LONG STORIES. PT UPSET DURING SHIFT AT INABILITY TO KEEP HOME MEDICATIONS AT BEDSIDE, EDUCATED PT ON HOSPITAL POLICIES REGARDING THIS. TOLERATING PO, MIIMAL APPETITE. KIRAN PATENT AND DRAINING PLAN TO REMOVE BEFORE CHANGE OF SHIFT AND MONITOR FOR URGE TO VOID. PT ADAMANT ON LEAVING TODAY FOR HOME. EDUCATED PT ON POSSIBLE NEED FOR SNF PLACEMENT.
--- NOTE | 2019-08-27 06:34 | NUR ---
PT REFUSED REMOVAL OF CATHETER. PT STATED SHE WANTS PHYSICAL THERAPY TO WORK WITH HER BEFORE WE REMOVE IT. ATTEMPTED TO EDUCATE PT ON INFECTION RISK AND PLAN FOR THE DAY. SHE CUT ME OFF AND TOLD ME SHE WOULD NOT LET IT BE TAKEN OUT UNTIL SHE WAS READY.
--- NOTE | 2019-08-27 09:22 | NUR ---
Requesting pain medication. Refused to have her Ryan discontinued this morning; states that she wants the results of the urine culture first, and that she must see the hospitalist before the catheter can be removed. Noc shift RN reported to me that she refused the Ryan to be dc'd until the PT and OT saw her today.
--- NOTE | 2019-08-27 09:36 | NUR ---
Dr. Carlos here to see the patient. Oxygen was turned off at this time. PT is on continuous oxymetry monitoring. spo2 98% on 2 l/min n.c. delivery; after turning off the oxygen, spo2 remained 95% on room air while talking with the physician.
--- NOTE | 2019-08-27 09:43 | NUR ---
Pt now refusing her Ryan be removed . Telling Dr. Carlos that it needs to stay in until she works with PT because "yesterday my foot was purple and swollen".
--- NOTE | 2019-08-27 11:09 | NUR ---
Pt says her underwear are messy, when asked if we could help her to get cleaned up patient refused help and states " I would rather sit in it and wait for antidiarrheal."
--- NOTE | 2019-08-27 11:49 | NUR ---
The pt is upset because she was incontinent of stool. She is refusing to have her pericare done or attends changed or linens changed because she says that she is still having incontinence. Refusing to have her Ryan removed. She is sitting up in the chair. STates that she is not lightheaded. STates that she often has low blood pressure, and states that even a systolic pressure of less than 80 is normal for her.
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
--- NOTE | 2019-08-27 14:28 | NUR ---
The pt was provided with discharge instructions regarding her surgery, follow up appointment which need to be made by her, home medication list. The pt provided constant conversation and interruptions and statements of "I know, I know, I know all of this," during my attempt to give verbal instructions as well as printed discharge information. She was busily writing all over the paperwork which I provided to her, and declined to allow me to give her any instructions. She states that her son is coming to get her, but she does not know at what time he is expected here. I called his phone number, and left a voice message as it was unanswered. Her IV was removed. She worked with both PT and OT this morning, although she was hesitant to work with OT because she stated,"I don't need them since I don't have an occupation." Attempts to help her understand the meaning of Occupational Therapy were met with verbal interruptions by the patient. The pt states that she really wants to go home. She states that she has both a caregiver and her son who help her and live with her, so she does not need anything else. She has refused to go to SNF, I understand.
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
== END 2019-08-27 15:11 | disposition home health service (06) | DRG 481 ==
LOC: ER 17:57 → PCU 17:58 → SURS 08-24 13:41
PROVIDERS: Emergency Medicine; Internal Medicine; Nurse Practitioner Acute Care; Orthopaedic Surgery; ADMIT Internal Medicine
PROC: 0QS604Z Reposition Right Upper Femur with Internal Fixation Device, Open Approach (ICD-10-PCS; principal; 2019-08-25 13:30)
DX: S72.141A Displaced intertrochanteric fracture of right femur, initial encounter for closed fracture (principal); K91.2 Postsurgical malabsorption, not elsewhere classified; R64 Cachexia; Z68.1 Body mass index [BMI] 19.9 or less, adult; F11.20 Opioid dependence, uncomplicated; E46 Unspecified protein-calorie malnutrition; G89.4 Chronic pain syndrome; M18.0 Bilateral primary osteoarthritis of first carpometacarpal joints; F17.210 Nicotine dependence, cigarettes, uncomplicated; E87.6 Hypokalemia; W18.30XA Fall on same level, unspecified, initial encounter; Y93.9 Activity, unspecified; Y92.9 Unspecified place or not applicable; E83.42 Hypomagnesemia
CPT/HCPCS: 36415; 51702; 71045; 73030; 73502; 73562-RT; 73700; 80048; 80053; 81001; 83605; 83735; 84484; 85014; 85018; 85025; 86850; 86900; 86901; 87040; 87071; 87075; 87086; 87205; 93005; 93010; 93306; 94762; 96361-59; 96374-59; 96375; 96376; 96376-59; 97112; 97162; 97166; 97530; 99285-25; C1713; C1769; G0378; J0696; J1170; J2370; J2704; J3010; J3475; J3480; J7030; J7060; J7120

== ENCOUNTER 2019-08-31 03:42 | Emergency (ER) | payer MEDICARE, OTHER ==
[~2019-08-31] VITALS: Ht 152.4 cm; Wt 43.1 kg
[~2019-08-31 03:42] MED LIST changes: +B-121000 MC3 PO; +DIPHENHYDR50 MG/1 M1 IM; +NYST237S PO
[2019-08-31 04:13] LABS: BASOPHILS ABSOLUTE AUTO 0.04 K/mm3 (0.00-0.23); BASOPHILS PERCENT AUTO 0 % (0-2); EOSINOPHILS ABSOLUTE AUTO 0.16 K/mm3 (0.00-0.68); EOSINOPHILS PERCENT AUTO 2 % (0-6); Hematocrit 32.8 % (33.0-51.0); Hemoglobin 10.6 g/dL (11.5-16.0); IMMATURE GRAN ABSOLUTE AUTO 0.04 K/mm3 (0.00-0.10); IMMATURE GRAN PERCENT AUTO 0 % (0-1); LYMPHOCYTES ABSOLUTE AUTO 1.48 K/mm3 (0.84-5.20); LYMPHOCYTES PERCENT AUTO 16 % (21-46); MONOCYTES ABSOLUTE AUTO 1.14 K/mm3 (0.16-1.47); MONOCYTES PERCENT AUTO 12 % (4-13); Mean Corpuscular HGB 29.2 pg (26.0-34.0); Mean Corpuscular HGB Conc 32.3 g/dL (31.5-36.5); Mean Corpuscular Volume 90 fL (80-100); Mean Platelet Volume 9.4 fL (9.1-12.4); NEUTROPHILS ABSOLUTE AUTO 6.68 K/mm3 (1.96-9.15); NEUTROPHILS PERCENT AUTO 70 % (41-73); Platelet Count 382 K/mm3 (150-400); RDW Coefficient Variation 14.3 % (11.7-14.2); RDW Standard Deviation 47.1 fL (35.1-46.3); Red Blood Cell Count 3.63 M/mm3 (3.80-5.20); White Blood Cell Count 9.54 K/mm3 (4.00-11.30)
[2019-08-31 04:30] LABS: Alanine Aminotransfer (ALT/SGP 14 U/L (12-78); Albumin, Blood 2.7 g/dL (3.4-5.0); Albumin/Globulin Ratio 0.7 (0.8-1.8); Alk Phos 67 U/L (50-136); Anion Gap 11 mmol/L (6-16); Aspartate Aminotrans (AST/SGOT 26 U/L (12-37); Bilirubin, Total 1.1 mg/dL (0.1-1.0); Blood Urea Nitrogen 2 mg/dL (8-24); Bun/Creatinine Ratio 4.1 (12.0-20.0); CO2, Blood 27 mmol/L (21-32); Calcium, Blood 8.5 mg/dL (8.5-10.1); Chloride, Blood 103 mmol/L (98-108); Creatinine, Blood 0.49 mg/dL (0.40-1.00); Globulin, Blood 3.9 g/dL (2.2-4.0); Glomerular Filtration Rate >60 (60-); Glucose, Blood 86 mg/dL (70-99); Potassium, Blood 2.8 mmol/L (3.5-5.5); Sodium, Blood 141 mmol/L (136-145); Total Protein, Blood 6.6 g/dL (6.4-8.2)
[2019-08-31 04:46] LABS: Magnesium, Blood 1.7 mg/dL (1.6-2.4)
[2019-08-31] MEDS ORDERED: K-Dur20 MEQ PO (08:40)
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
== END 2019-08-31 10:50 | disposition home or self-care (01) ==
LOC: ER 03:42
PROVIDERS: Emergency Medicine
DX: G89.18 Other acute postprocedural pain (principal); M25.552 Pain in left hip; E87.6 Hypokalemia; Z88.1 Allergy status to other antibiotic agents; Z88.2 Allergy status to sulfonamides; Z88.5 Allergy status to narcotic agent; Z88.8 Allergy status to other drugs, medicaments and biological substances; Z88.6 Allergy status to analgesic agent; Z91.048 Other nonmedicinal substance allergy status; Z79.899 Other long term (current) drug therapy; F17.210 Nicotine dependence, cigarettes, uncomplicated; Z98.890 Other specified postprocedural states
CPT/HCPCS: 36415; 51702; 80053; 83735; 85025; 96361-59; 96374-59; 97162; 97530; 99284-25; A9270; J3475; J7030

== ENCOUNTER 2019-09-11 15:42 | Observation (INO) | payer MEDICARE, OTHER ==
[~2019-09-11] VITALS: Ht 162.6 cm; Wt 42.4 kg
[~2019-09-11 15:42] MED LIST changes: -B-121000 MC3 PO; -DIAZ5 PO; -Imitrex100 MG PO; +Imitrex50 MG PO; +K-Dur20 MEQ PO
[2019-09-11 16:19] LABS: BASOPHILS ABSOLUTE AUTO 0.03 K/mm3 (0.00-0.23); BASOPHILS PERCENT AUTO 0 % (0-2); EOSINOPHILS ABSOLUTE AUTO 0.08 K/mm3 (0.00-0.68); EOSINOPHILS PERCENT AUTO 1 % (0-6); Hematocrit 39.7 % (33.0-51.0); Hemoglobin 13.3 g/dL (11.5-16.0); IMMATURE GRAN ABSOLUTE AUTO 0.04 K/mm3 (0.00-0.10); IMMATURE GRAN PERCENT AUTO 0 % (0-1); LYMPHOCYTES ABSOLUTE AUTO 1.75 K/mm3 (0.84-5.20); LYMPHOCYTES PERCENT AUTO 15 % (21-46); MONOCYTES PERCENT AUTO 8 % (4-13); Mean Corpuscular HGB 30.4 pg (26.0-34.0); Mean Corpuscular HGB Conc 33.5 g/dL (31.5-36.5); Mean Corpuscular Volume 91 fL (80-100); Mean Platelet Volume 9.3 fL (9.1-12.4); NEUTROPHILS ABSOLUTE AUTO 8.96 K/mm3 (1.96-9.15); NEUTROPHILS PERCENT AUTO 76 % (41-73); Platelet Count 501 K/mm3 (150-400); RDW Coefficient Variation 16.6 % (11.7-14.2); RDW Standard Deviation 54.4 fL (35.1-46.3); Red Blood Cell Count 4.38 M/mm3 (3.80-5.20); White Blood Cell Count 11.76 K/mm3 (4.00-11.30)
[2019-09-11 16:33] LABS: Magnesium, Blood 1.6 mg/dL (1.6-2.4)
[2019-09-11 16:37] LABS: Alanine Aminotransfer (ALT/SGP 16 U/L (12-78); Albumin, Blood 3.1 g/dL (3.4-5.0); Albumin/Globulin Ratio 0.8 (0.8-1.8); Alk Phos 155 U/L (50-136); Anion Gap 15 mmol/L (6-16); Aspartate Aminotrans (AST/SGOT 22 U/L (12-37); Bilirubin, Total 1.1 mg/dL (0.1-1.0); Blood Urea Nitrogen 4 mg/dL (8-24); Bun/Creatinine Ratio 7.2 (12.0-20.0); CO2, Blood 26 mmol/L (21-32); Calcium, Blood 8.5 mg/dL (8.5-10.1); Chloride, Blood 94 mmol/L (98-108); Creatinine, Blood 0.56 mg/dL (0.40-1.00); Globulin, Blood 3.9 g/dL (2.2-4.0); Glomerular Filtration Rate >60 (60-); Glucose, Blood 101 mg/dL (70-99); Potassium, Blood 2.1 mmol/L (3.5-5.5); Sodium, Blood 135 mmol/L (136-145)
[2019-09-11] MEDS ORDERED: DIAZ5 PO (18:55)
--- NOTE | 2019-09-12 01:00 | NUR ---
PT VERY ANXIOUS THIS EVENING. WHEN PT FIRST REACHED ROOM SHE DENIED ANY PAIN AND SPECIFICALLY STATED THAT SHE DID NOT WANT ANY "PAIN MEDS OR SEDATIVES" APPROX AN HOUR LATER PT STATING THAT SHE IS SHAKING AND NEEDS MEDICATION. PT REFUSES TO WEAR A GOWN AND WHEN GIVEN BLANKETS SHE STATES THAT THEY "SMELL" AND THROWS THEM ON THE FLOOR. DR. JOHNSON NOTIFIED WITH NEW ORDERS FOR VALIUM 5 MG HS PRN. VALIUM GIVEN, PT ALSO REQUESTED BENADRYL. BENADRYL GIVEN. SHORTLY AFTER PT STATING THAT "THE ER WAS EVACUATED EARLIER" AND THAT THERE IS "MUSTARD GAS IN THE AIR" AND THAT SHE IS "HAVING SEIZURES" A RESULT. PT HAS NO SEIZURE LIKE ACTIVITY. PT THREATENING TO "[facility]". PT ATTEMPTING TO COVER MOUTH WITH PLASTIC TRASH BAG, BAG REMOVED FROM ROOM. MASK SUPPLIED TO PT PER PT'S REQUEST EARLIER IN THE SHIFT BUT PT STATED THAT IT ALSO SMELLED AND THREW IT ON THE FLOOR. PT JUST NOW STATING THAT THERE WERE MAGGOTS IN THE BED. YELLING AT US TO "GET THE SMELL OFF". LPC ELIANE MASON, NURSING QUALITY SYSTEMS SPECIALIST, AND DR. JOHNSON AWARE OF PT'S BEHAVIOUR.
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
--- NOTE | 2019-09-12 05:34 | NUR ---
SHIFT SUMMARY PT HAS BIZARRE THINKING. SEE PREVIOUS NOTES. DOES NOT LISTEN TO STAFF. USES CALL LIGHT EXCESSIVELY. REPORTS THAT SHE IS ALLERGIC TO "EVERYTHING" AND THINKS THAT SHE IS GOING INTO "ANAPHYLACTIC SHOCK". YELLS AT STAFF CONSTANTLY TO "CALL THE DOCTOR". UNHOOKS HER IV AT TIMES. ACCUSES STAFF OF GIVING HER "PSYCH" MEDS. POTASSIUM OF 2.1 DOWN IN ED. 2 KRIDERS INFUSED ALONG WITH 1 L OF FLUIDS WITH K. 1 MAG RIDER GIVEN WELL. PT REFUSES TO PUT ON ANY CLOTHES AND REQUESTS BLANKETS BUT THEN THROWS THEM ON THE FLOOR SAYING THEY SMELL. PT HAS LIQUID BROWN STOOL. THIS IS HER BASELINE. INCONTINENT AT TIMES. VITAL SIGNS STABLE. TELEMETRY ON. PT SR IN THE 80'S THROUGHOUT THE NIGHT. PT DRANK A SMALL AMOUNT OF WATER TO SWALLOW A PILL BUT OTHERWISE WOULD NOT EAT OR DRINK ANYTHING. PHONE TAKEN AWAY DUE TO PT CALLING 911. SEE PREVIOUS NOTE. PT PRIOR ON PHONE FREQUENTLY, REPEATING THE WORDS "MALPRACTICE" INTO THE PHONE WHENEVER STAFF WOULD ENTER. WANTING TO LEAVE AT THIS TIME. WILL CALL MD AND SEE IF THEY WANT US TO LET HER GO.
[2019-09-12 05:45] LABS: Anion Gap 9 mmol/L (6-16); Blood Urea Nitrogen 2 mg/dL (8-24); Bun/Creatinine Ratio 4.7 (12.0-20.0); CO2, Blood 28 mmol/L (21-32); Calcium, Blood 7.9 mg/dL (8.5-10.1); Chloride, Blood 103 mmol/L (98-108); Creatinine, Blood 0.42 mg/dL (0.40-1.00); Glomerular Filtration Rate >60 (60-); Glucose, Blood 102 mg/dL (70-99); Magnesium, Blood 2.2 mg/dL (1.6-2.4); Potassium, Blood 2.9 mmol/L (3.5-5.5); Sodium, Blood 140 mmol/L (136-145)
--- NOTE | 2019-09-12 07:21 | NUR ---
DR. JOHNSON UP FOR ASSESSMENT OF PT. 2 MD HOLD PLACED. REPORT GIVEN TO BAR RN.
[2019-09-12 16:30] LABS: Albumin, Blood 3.2 g/dL (3.4-5.0); Anion Gap 9 mmol/L (6-16); Blood Urea Nitrogen 2 mg/dL (8-24); CO2, Blood 24 mmol/L (21-32); Calcium, Blood 8.5 mg/dL (8.5-10.1); Chloride, Blood 105 mmol/L (98-108); Creatinine, Blood 0.51 mg/dL (0.40-1.00); Glomerular Filtration Rate >60 (60-); Glucose, Blood 111 mg/dL (70-99); Phosphorus, Blood 1.8 mg/dL (2.5-4.9); Potassium, Blood 3.2 mmol/L (3.5-5.5); Sodium, Blood 138 mmol/L (136-145)
--- NOTE | 2019-09-12 17:35 | NUR ---
THE PT IS A/OX3, THE PT TODAY HAS BEEN ARGUMENTATIVE, NONCOMPILANT AND INSISTANT AT TIMES, THE PT REPORTS THAT SHE IS VERY SENSATIVE TO SMELLS AND HAS REFUSED CERTAIN LINENS AND OTHE THIS BECAUSE OF THE SMELL, THE PT AT TIME HAS EVEN STRIPED OFF HER GOWN AND REMAINED NAKED AT TIMES, THE PT SEVERAL TIMES REPORTED THAT SHE WAS HAVING AN ANAPHALACTIC REACTION TO THE SMELLS IN THE AIR AND WANTED BENADRYL AND PHENERGAN, WHEN OFFERED ORAL BENADRYL THE REFUSED SAYING THAT SHE COULD ONLY TAKE IT IM BECAUSE THE PO CAUSED HER TO HAVE TACHYCARDIA, AFTER SEVERAL ATTEMPTS TODAY TO GIVE THE PT POASSIUM BOTH IV AND PO, THE PT FINALY TOOK THE POTASSIUM ELIXER THIS AFTERNOON, THE PT IS NOW OUT IN THE [place] IN A CHAIR AND SEEMS TO BE DOING BETTER AND MORE COOPERATIVE, PT IS EATING DINNER, WILL CONTINUE TO MONITOR AND ASSESS FOR CHANGES
--- NOTE | 2019-09-12 23:33 | NUR ---
PT PLEASANT, SPEAKING QUICKLY AND TENGENTIALLY. GRANDIOSE STATEMENTS. INSISTS SHE NEEDS BENADRYL IM OR IV TO PREVENT ANAPHYLAXIS. REFUSED TO TAKE PO BENADRYL CURRENTLY ORDERED, STATING SHE IS ALLERGIC TO THE ADDITIVES. REPORTS TO ME THAT AT HOME SHE TAKES IM BENADRYL SEVERAL TIMES A DAY AND STATES "SMOKING A [place]LB[place]O OR A CAMEL HELPS TO OPEN UP MY LUNGS WHILE I GET THE INJECTION READY". CURRENTLY REQUESTING BENADRYL BUT STATING HER LUNGS FEEL IMPROVED. NO S/S OF ANAPHYLAXIS. RESPS REGULAR, NON-LABORED. LSCTA.
--- NOTE | 2019-09-13 05:53 | NUR ---
SHIFT SUMMARY: VSS. AFEB. AAOX3. ABLE TO COMMUNICATE NEEDS. PRESSES CALL BUTTON FREQUENTLY "FOR FUN". REMAINED AWAKE ALL NIGHT- PT STATES THIS IS COMPLETELY NORMAL FOR HER. OFFERED VALIUM AT HS, PT REFUSED. HAS BEEN COOPERATIVE, FRIENDLY, AND VERY TALKATIVE ALL NIGHT. DIFFICULT TO KEEP PT FOCUSED ON THE TASK OR TOPIC AT HAND. SPEECH IS TANGENTIAL W/FLIGHT OF IDEAS. PT MAKING GRANDIOSE STATEMENTS. NO PARANOIA VERBALIZED TONIGHT. EAGER TO GO HOME BUT HAS MADE NO COMMENT ABOUT LEAVING AMA. W/PT PERMISSION, UPDATED PT SISTER ON PT STATUS. PT SISTER CONCERNED ABOUT PT NOT CURRENTLY RECEIVING DAILY DIFLUCAN. WILL PASS THIS INFO ON THIS AM. PRN OPIUM ADMINISTERED X1 FOR DIARRHEA. PT T/F INDEPENDENTLY TO [facility] TONIGHT. WILL CONT TO MONITOR.
[2019-09-13 12:26] LABS: Source, Urine Clean Catch
--- NOTE | 2019-09-13 12:45 | NUR ---
OPIUM TINCTURE 10MG/ML 1ML ORAL SYRINGE RECIEVED FROM PHARMACY. WASTED 0.5 ML OF 10 MG/ML WITH NEIL ORELLANA RN. THE PATIENT WAS GIVEN 0.5 ML OF 10 MG/ML, CHARTED ON EMAR.
[2019-09-13 13:18] LABS: U Amphetamine Screen Not Detected; U Barbituate Screen Not Detected; U Cocaine Screen Not Detected; U Methadone Screen Not Detected; U Methamphetamine Screen Not Detected
[2019-09-13 13:19] LABS: U Opiates Screen DETECTED
[2019-09-13 13:20] LABS: U Benzodiazapine Screen DETECTED; U Buprenorphine Screen Not Detected; U Cannabinoids Screen Not Detected; U Oxycodone Screen Not Detected; U Phencyclidine Screen Not Detected; U Propoxyphene Screen Not Detected
[2019-09-13 13:27] LABS: Bilirubin, Urine Neg (Neg); Blood, Urine 1+ (Neg); Glucose Qualitative, Urine Neg (Neg); Ketones, Urine 1+ (Neg); Leukocyte Esterase, Urine 1+ (Neg); Nitrite, Urine Pos (Neg); Protein, Urine Neg (Neg); Urobilinogen, Urine NORM (Normal); pH, Urine 6.5 (5.0-8.0)
[2019-09-13 13:34] LABS: Appearance, Urine Hazy (Clear); Color, Urine Yellow (P-Yellow)
[2019-09-13 13:41] LABS: Bacteria Mod /hpf; Calcium Oxalate Crystals Mod /hpf; Red Blood Cells, Urine 0-2 /hpf (0-2); Squamous Epithelial Cells Few /hpf (Few)
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
--- NOTE | 2019-09-13 17:18 | NUR ---
RN TALKED TO THE PATIENT'S SON TODAY AT 17:15. THE PATIENT'S SON STATES THAT THE PATIENT HAS AN APPOINTMENT ON 09/22/19 TO GET A NEW PCP. PATIENT'S SON ALSO STATES THAT THEY HAVE ALL THE PATIENT'S HOME MEDICATIONS.
[2019-09-13] MEDS ORDERED: ABAT250V (17:52)
[2019-09-13] MEDS ORDERED: POTA20LUD PO (17:52)
--- NOTE | 2019-09-13 18:17 | NUR ---
PATIENT DISCHARGED AT 18:15.
== END 2019-09-13 18:15 | disposition home or self-care (01) ==
LOC: ER 15:42 → MEDS 15:43 → ER 19:38 → MEDS 20:35
PROVIDERS: Emergency Medicine; Family Medicine; Nurse Practitioner Acute Care; ADMIT Internal Medicine
DX: E87.6 Hypokalemia (principal); E87.1 Hypo-osmolality and hyponatremia; E83.42 Hypomagnesemia; I45.81 Long QT syndrome; K91.2 Postsurgical malabsorption, not elsewhere classified; G89.4 Chronic pain syndrome; S72.001A Fracture of unspecified part of neck of right femur, initial encounter for closed fracture; X58.XXXA Exposure to other specified factors, initial encounter; F17.210 Nicotine dependence, cigarettes, uncomplicated; Z88.2 Allergy status to sulfonamides; Z88.5 Allergy status to narcotic agent; Z88.6 Allergy status to analgesic agent; Z88.8 Allergy status to other drugs, medicaments and biological substances; Z79.899 Other long term (current) drug therapy
CPT/HCPCS: 36415; 80048; 80053; 80069; 81001; 83690; 83735; 84132; 85025; 87077; 87086; 87186; 93005; 93010; 96361; 96365; 96366; 96367; 96372; 96375; 96376; 99285-25; A9270; A9270-GY; G0378; J1200; J1650; J2550; J3475; J3480; J7030; J7120